=== PATIENT | female | born 1940 ===

== ENCOUNTER 2024-01-11 09:47 | Day surgery (SDC) | payer MEDICARE, OTHER ==
[~2024-01-11] VITALS: Ht 162.6 cm; Wt 76.3 kg
[~2024-01-11 09:47] MED LIST: LR 1,000 ML IV SCH; Ondansetron 4 MG/2 ML VIAL IV PRN
[2024-01-11 10:49] VITALS: BP 137/93; PULSE 88; TEMP 98.1
[2024-01-11] MEDS ORDERED: NORVASC 5MG5 MG/TAB PO (11:11)
[2024-01-11] MEDS ORDERED: ELIQUIS 5MG PO (11:12)
[2024-01-11] MEDS ORDERED: APRESOLINE50 MG PO (11:13)
[2024-01-11] MEDS ORDERED: LANOXIN 0.120.125 MG PO (11:14)
[2024-01-11] MEDS ORDERED: NEURONTIN100 MG/CAP PO (11:16)
[2024-01-11] MEDS ORDERED: PRILOSEC 20MG20 MG PO (11:17)
[2024-01-11] MEDS ORDERED: DETROL LA4 PO (11:17)
[2024-01-11] MEDS ORDERED: FERROUS SU325 MG/TAB PO (11:18)
[2024-01-11] MEDS ORDERED: DIOVAN 160MG160 MG PO (11:18)
[2024-01-11] MEDS ORDERED: BUMEX 1MG TA1 MG/TA1 PO (11:19)
[2024-01-11] MEDS ORDERED: VITAMIN D 400400 IU PO (11:21)
[2024-01-11] MEDS ORDERED: Lidocaine PF 2% (20 MG/ML) 5 ML VIAL ONE (12:22)
[2024-01-11 13:15] VITALS: BP 136/87; PULSE 87; TEMP 97.7
--- NOTE | 2024-01-11 13:15 | NUR ---
PATIENT AMBULATED TO CHAIR WITH STEADY GAIT, ASSIST OF 2. ALERT AND AWAKE. DENIES PAIN, NAUSEA AND SHORTNESS OF BREATH. BREATHING REGULAR AND UNLABORED ON ROOM AIR. SKIN WARM AND DRY. IV IN PLACE. NURSE HANDOFF COMPLETED IN ROOM. SEE CHART FOR VITAL SIGNS. PATIENT HAD WATER AND CHOCOLATE PUDDING. BOTH FOOD AND DRINK TOLERATED WELL. NO DYSPHAGIA. CALL LIGHT IN REACH. DAUGHTER, GABRIELLE, PRESENT IN ROOM.
[2024-01-11 13:30] VITALS: BP 130/75; PULSE 70
[2024-01-11 13:45] VITALS: BP 122/62; PULSE 82
[2024-01-11 14:00] VITALS: BP 125/80; PULSE 84
--- NOTE | 2024-01-11 14:16 | NUR ---
1400: MET WITH PATIENT AND DAUGHTER IN ROOM TO DISCUSS PROCEDURE. 1350: DISCHARGE TEACHING COMPLETED WITH PRINTED EDUCATION AND INSTRUCTIONS SENT HOME WITH PATIENT. PATIENT VERBALIZED UNDERSTANDING OF TEACHING. 1407: IV REMOVED. GAUZE AND COBAN PLACED OVER SITE. 1416: PATIENT DISCHARGED HOME WITH [facility]SP[facility].
== END 2024-01-11 14:16 | disposition home or self-care (01) ==
LOC: SDCO 09:47
DX: D12.2 Benign neoplasm of ascending colon (principal); R13.10 Dysphagia, unspecified; K63.5 Polyp of colon; K29.30 Chronic superficial gastritis without bleeding; K62.5 Hemorrhage of anus and rectum; K64.0 First degree hemorrhoids; D50.9 Iron deficiency anemia, unspecified
CPT/HCPCS: C1769; J2704; J7120